=== PATIENT | male | born 1985 | race Caucasian/White ===

== ENCOUNTER 2021-05-04 07:52 | Emergency (ER) | payer OTHER ==
[2021-05-04 08:13] VITALS: BP 119/63; PULSE 68; TEMP 98.2; BMI 39.2
[2021-05-04] MEDS ORDERED: FLUORESCEIN NA 1 EA STRIP OS ONE (08:18)
[2021-05-04] MEDS ORDERED: TETRACAINE 0.5% HCL 0.6ML DROPPER.BOTTLE OS ONE (08:18)
[2021-05-04] MEDS ORDERED: FLUORESCEIN NA 1 EA STRIP ONE (08:20)
[2021-05-04] MEDS ORDERED: TETRACAINE 0.5% OPHTH SOLN 2 ML BOTTLE ONE (08:20)
[2021-05-04] MEDS ORDERED: ERYTHROMYCIN 0.5% OPHTHALMIC OINTMENT 3.5 GM TUBE OS ONE (08:35)
[2021-05-04] MEDS ORDERED: ERYTHROMYCIN 0.5% OPHTHALMIC OINTMENT 3.5 GM TUBE ONE (08:38)
== END 2021-05-04 08:50 | disposition home or self-care (01) ==
LOC: JERFT 07:52
DX: S05.02XA Injury of conjunctiva and corneal abrasion without foreign body, left eye, initial encounter (principal); W26.8XXA Contact with other sharp object(s), not elsewhere classified, initial encounter
CPT/HCPCS: 99283-25